=== PATIENT | male | born 1955 | race Caucasian/White ===

== ENCOUNTER 2018-11-24 11:18 | Emergency (ER) | payer MEDICARE, OTHER ==
[~2018-11-24] VITALS: Ht 172.7 cm; Wt 82.5 kg
[2018-11-24] MEDS ORDERED: MULTCAP PO (11:54)
[2018-11-24] MEDS ORDERED: BETA1TAB PO (11:54)
[2018-11-24] MEDS ORDERED: [UNRECOGNIZED DRUG - OTHER] PO (11:54)
[2018-11-24] MEDS ORDERED: DOXY100C PO (11:54)
[2018-11-24] MEDS ORDERED: ALLO100T PO (11:54)
[2018-11-24] MEDS ORDERED: CVS1CAP2 PO (11:54)
[2018-11-24] MEDS ORDERED: D200CAP2 PO (11:54)
[2018-11-24] MEDS ORDERED: ATOR1TAB19 PO (11:54)
[2018-11-24] MEDS ORDERED: COLE625TAB PO (11:54)
[2018-11-24] MEDS ORDERED: ECOT81TA5 PO (11:54)
[2018-11-24] MEDS ORDERED: ANTI2CAP PO (11:54)
--- NOTE | 2018-11-24 12:27 | REP ---
CT of the brain without IV contrast: There are no comparisons. There are small petechial hemorrhages in the right frontal lobe anteriorly. There is focal increased density along the anterior margin of the right temporal lobe which may be combination of dural calcification and volume averaging artifact from adjacent bone. However, a small subdural hematoma cannot be entirely discounted. No other subdural, epidural or intraparenchymal hematoma is identified. There is no edema, mass effect or midline shift. There is an air-fluid level in the maxillary sinus and the sphenoid sinus. The left mastoid air cells are opacified compared to the right. No mastoid fracture or air-fluid level identified. This finding is nonspecific and could be chronic or acute. There is opacification of a few ethmoid sinus air cells. The cortical stripe is unremarkable. The sulci and ventricles are mildly enlarged compatible with diffuse volume loss. Impression: Petechial hemorrhages in the right frontal lobe anteriorly. Increased density along the anterior margin right frontal lobe, nonspecific, dural calcification versus volume averaging of adjacent bone, however, small subdural hematoma is not entirely excluded. No other intracranial hemorrhage. No mass effect, edema, or midline shift. Diffuse mild volume loss. Air-fluid level in the right maxillary sinus. Air-fluid level in the sphenoid sinus. Opacification of the left mastoid air cells with and mastoid fracture. This could be chronic or acute. Opacification of few ethmoid sinus air cells. Electronically Signed by Rigoberto Carpio MD 11/24/2018 12:19 P
--- NOTE | 2018-11-24 12:31 | REP ---
Right shoulder three views: There is no fracture or dislocation. Mineralization is normal. The acromioclavicular and glenohumeral articulations are unremarkable. There is a calcification superolateral to the humeral head compatible with calcific tendonitis. Impression: No fracture or dislocation. Calcific tendonitis. Electronically Signed by Rigoberto Carpio MD 11/24/2018 12:21 P
--- NOTE | 2018-11-24 12:33 | REP ---
Right elbow for views: There is a fracture of the radial neck, the proximal fracture fragment may be displaced posteriorly. There is a fracture of the olecranon. There is no dislocation. There are no calcifications or foreign bodies. An CT might be considered for further evaluation of the fracture fragments. Electronically Signed by Rigoberto Carpio MD 11/24/2018 12:25 P
--- NOTE | 2018-11-24 12:34 | REP ---
Portable chest, single PA view, 11:57 a.m.: There are no comparisons. The lung anthony are clear. Cardiac size is normal. The chriss, mediastinum, skeletal structures are unremarkable except for calcific tendonitis of the right shoulder. Impression: Essentially negative PA chest except for right shoulder calcific tendonitis. Electronically Signed by Rigoberto Carpio MD 11/24/2018 12:26 P
[2018-11-24 12:40] LABS: BASO % 0.2 % (0.0-1.0); EOS % 0.1 % (0.0-3.0); HEMATOCRIT 46.5 % (42.0-52.0); HEMOGLOBIN 15.7 g/dl (13.5-17.5); LYMPH # 1.7 10^3/uL (1.5-5.0); LYMPH % 10.2 % (24.0-44.0); MEAN CORPUSCULAR HEMOGLOBIN 30.9 pg (27.0-33.0); MEAN CORPUSCULAR HGB CONC 33.8 g/dl (32.0-36.5); MEAN CORPUSCULAR VOLUME 91.5 fl (80.0-96.0); MONO % 13.5 % (0.0-5.0); NEUTROPHILS # 12.3 10^3/uL (1.5-8.5); NEUTROPHILS % 75.1 % (36.0-66.0); PLATELET COUNT, AUTOMATED 203 10^3/uL (150-450); RED BLOOD COUNT 5.08 10^6/uL (4.30-6.10); WHITE BLOOD COUNT 16.4 10^3/uL (4.0-10.0)
--- NOTE | 2018-11-24 12:43 | REP ---
CT CERVICAL SPINE: CT cervical spine performed in the axial plane. Sagittal and coronal reconstruction images are performed. There is no compression fracture or malalignment with normal cervical lordosis. There is no prevertebral soft tissue swelling. There is spurring to a mild degree at C5. There is moderate spurring, disc space narrowing and subchondral sclerosis at C6-7. There is scattered spurring and narrowing at the posterior facet joints. No abnormal density is seen in the spinal canal. IMPRESSION: Degenerative changes. No evidence of fracture or dislocation. Electronically Signed by Rigoberto Aguiar MD 11/24/2018 04:19 P
--- NOTE | 2018-11-24 12:59 | REP ---
Right wrist four views: I suspect there is a nondisplaced fracture of the triquetrum. This should be correlated with clinical point tenderness. CT might be considered for confirmation. Mineralization and joint spaces otherwise are unremarkable. No other fractures or dislocations are identified. Impression: Nondisplaced fracture of the triquetrum. CT could be considered for confirmation. Electronically Signed by Rigoberto Carpio MD 11/24/2018 12:50 P
[2018-11-24 13:03] LABS: MONO # 2.2 10^3/uL (0.0-0.8)
[2018-11-24 13:12] LABS: ALBUMIN 4.1 GM/DL (3.2-5.2); ALT/SGPT 40 U/L (12-78); BILIRUBIN,DIRECT 0.2 MG/DL (0.0-0.2); BILIRUBIN,TOTAL 0.8 MG/DL (0.2-1.0); BLOOD UREA NITROGEN 17 MG/DL (7-18); CALCIUM LEVEL 9.5 MG/DL (8.8-10.2); CARBON DIOXIDE LEVEL 23 MEQ/L (21-32); CHLORIDE LEVEL 109 MEQ/L (98-107); CK-MB VALUE MASS 11.5 NG/ML (<3.6); CPK CREATINE PHOSPHOKINASE 872 U/L (39-308); CREATININE FOR GFR 1.29 MG/DL (0.70-1.30); GLOMERULAR FILTRATION RATE 59.5 (>49); GLUCOSE, FASTING 202 MG/DL (70-100); MB/CK RELATIVE INDEX 1.32 (< OR =4); POTASSIUM SERUM 4.5 MEQ/L (3.5-5.1); SODIUM LEVEL 141 MEQ/L (136-145); THYROID STIMULATING HORMONE 0.521 uIU/ML (0.358-3.740); TOTAL PROTEIN 7.2 GM/DL (6.4-8.2); TROPONIN I < 0.02 NG/ML (< 0.10)
[2018-11-24] MEDS ORDERED: ONDANSETRON 4MG/2ML VIAL (J2405) IV ONE (13:45)
[2018-11-24] MEDS ORDERED: MORPHINE 4 MG/ML 1ML VIAL/SYRINGE (J2270) IV PRN (13:45)
[2018-11-24 14:47] VITALS: BP 146/86
--- NOTE | 2018-11-25 04:52 | ECGEPIP ---
[facility] - ED Test Date: 2018-11-24 Pat Name: ELIZA ATKINS Department: Room: - Gender: Male [employer]: : [id number] Requested By: Kings Duran Order Number: [id number] Reading MD: Kings Mcfarlane Measurements Intervals Fox Rate: 88 P: 60 HI: 164 QRS: -79 QRSD: 110 T: 81 QT: 343 QTc: 416 Interpretive Statements SINUS RHYTHM LEFT AXIS DEVIATION PATTERN CONSISTENT WITH PULMONARY DISEASE NONSPECIFIC T-WAVE ABNORMALITY NO PRIORS FOR COMPARISON Electronically Signed on 11-25-2018 4:52:21 EDT by Kings Mcfarlane
== END 2018-11-24 14:48 | disposition short-term general hospital (02) ==
LOC: M ED 11:18
DX: S06.9X9A Unspecified intracranial injury with loss of consciousness of unspecified duration, initial encounter (principal); S52.131A Displaced fracture of neck of right radius, initial encounter for closed fracture; S52.021A Displaced fracture of olecranon process without intraarticular extension of right ulna, initial encounter for closed fracture; S62.114A Nondisplaced fracture of triquetrum [cuneiform] bone, right wrist, initial encounter for closed fracture; W10.8XXA Fall (on) (from) other stairs and steps, initial encounter; Y92.008 Other place in unspecified non-institutional (private) residence as the place of occurrence of the external cause; M75.31 Calcific tendinitis of right shoulder; I10 Essential (primary) hypertension; E78.5 Hyperlipidemia, unspecified; Z85.038 Personal history of other malignant neoplasm of large intestine; Z88.8 Allergy status to other drugs, medicaments and biological substances; Z79.82 Long term (current) use of aspirin; Z79.899 Other long term (current) drug therapy
CPT/HCPCS: 70450; 71045; 72125; 73030; 73080; 73110; 80048; 80076; 82550; 82553; 84443; 84484; 85025; 93005; 93041; 94760; 96374; 96375; 99285; J2270; J2405